=== PATIENT | male | born 1955 | race Caucasian/White ===

== ENCOUNTER → 2024-09-15 | Outpatient (CLI) | payer BC, MEDICARE ==
--- NOTE | 2024-09-20 11:33 | MR ---
EXAMINATION TYPE: MR knee LT wo con DATE OF EXAM: 09/15/2024 2:37 PM COMPARISON: None. 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 No Gadolinium was given. IV Contrast: mL (none if empty) FINDINGS: Medial meniscus: Medial meniscal high PD signal extending to the undersurface of the body series 501 image 23. Medial femorotibial cartilage: Intact Medial collateral ligament: Edema seen around the medial collateral ligament along the superficia l portion. Additionally there is thickened appearance on series 501 image 19 near the femur attachmen t. Lateral meniscus: Intact Lateral femorotibial cartilage: Intact Lateral collateral ligament complex: Intact Patellofemoral alignment: Normal Patellofemoral cartilage: There is deep fissuring with subchondral bony edema series 701 image 31 . Extensor mechanism: Intact. Joint/bursal fluid: None. Muscles/tendons: The patellar tendon, quadriceps tendon, IT band, pes anserinus tendons, semimembrano ashtyn tendon, popliteus tendon, and biceps femoris tendon are all within normal limits. Bone marrow: Bone marrow edema involving the patella. Anterior cruciate ligament: Intact. Posterior cruciate ligament: Intact. Soft tissues: There is a small Hayward cyst measuring up to 5.1 x 1.1 cm. IMPRESSION: 1. Medial meniscal body undersurface tear. 2. Grade 2 medial collateral ligament sprain. 3. The lateral meniscus appears intact. 4. The PCL and ACL appear intact. 5. Popliteal fossa Hayward's cyst. 6. Deep fissuring of the cartilage of the lateral patellar facet with bony edema. [facility], , 09/20/2024 11:31 AM
== END | disposition home or self-care (01) ==
LOC: RADMRIMAIN 14:03
PROVIDERS: ATTEND Orthopaedic Surgery
DX: S83.412A Sprain of medial collateral ligament of left knee, initial encounter (principal); M67.50 Plica syndrome, unspecified knee; M17.12 Unilateral primary osteoarthritis, left knee; M71.22 Synovial cyst of popliteal space [Baker], left knee; R60.9 Edema, unspecified; X58.XXXA Exposure to other specified factors, initial encounter